=== PATIENT | female | born 1950 | race American Indian/Alaskan Native ===

== ENCOUNTER 2020-02-24 11:10 | Outpatient (CLI) | payer MEDICARE ==
--- NOTE | 2020-02-24 13:02 | XRay Report ---
RIGHT HIP 3 VIEWS INDICATION / CLINICAL INFORMATION: TROCHANTERIC BURSITIS RIGHT HIP. COMPARISON: None available. FINDINGS: Mild degenerative change. No other significant skeletal abnormality Signer Name: Blu Miner MD FACR Signed: 02/24/2020 12:58 PM Workstation Name: [id number]
--- NOTE | 2020-02-24 13:04 | XRay Report ---
STERNOCLAVICULAR JOINTS 3 VIEWS INDICATION / CLINICAL INFORMATION: PAIN OF RIGHT STERNOCLAVICULAR JOINT. COMPARISON: None available. FINDINGS: No significant skeletal abnormality Signer Name: Blu Miner MD FACFranko Signed: 02/24/2020 12:59 PM Workstation Name: [id number]
== END 2020-02-24 11:11 | disposition home or self-care (01) ==
LOC: SPVIMAG 11:10
PROVIDERS: ATTEND Internal Medicine
DX: M16.11 Unilateral primary osteoarthritis, right hip (principal); M25.511 Pain in right shoulder; M70.61 Trochanteric bursitis, right hip
CPT/HCPCS: 71130